=== PATIENT | female | born 1995 | race Caucasian/White ===

== ENCOUNTER 2019-10-24 17:41 | Inpatient (IN) | payer OTHER, SELFPAY ==
[2019-10-24] VITALS (66 sets, daily range): BP systolic 94–130; BP diastolic 51–85; PULSE 59–136; RESP 18–20; TEMP 36.6–37.3; O2SAT 84–100; BMI 20.9
[2019-10-24 18:59] LABS: Mean Corpuscular HGB Conc 33.3 g/dl (32-36); Mean Corpuscular Hemoglobin 27.4 pg (26-34); Mean Corpuscular Volume 82.3 fl (80-100); Mean Platelet Volume 10.6 fl (7.4-10.4); Platelet Count Result 500 k/mm3 (150-375); Red Blood Count 4.01 M/mm3 (4.2-5.4); Red Cell Distribution Width 13.7 % (11.5-14.5); White Blood Count 21.7 K/mm3 (4.5-10.0)
[2019-10-24] MEDS: ONDANSETRON INJ 4 MG/2 ML VIAL IV PUSH (19:01)
[2019-10-24] MEDS: LACTATED RINGERS 1,000 ML 125 ML IV CONT ×2 (19:03→20:03)
[2019-10-24] MEDS: AMPICILLIN 2 GM/NS 100 ML 2 GM/100 ML BAG IVPB (19:04)
[2019-10-24 19:20] LABS: Band Neutrophils Percent 5 % (0-6); Lymphocytes Absolute Manual 2.38 K/mm3 (1.1-4.5); Monocytes Absolute Manual 1.73 K/mm3 (0.1-0.90); Monocytes Percent Manual 8 % (3-9); Neutrophils Absolute Manual 17.57 K/mm3 (1.7-7.2); Neutrophils Percent Manual 76 % (46-73); Platelet Estimate Increased (Adequate); Total Cells Counted 100
--- NOTE | 2019-10-24 20:09 | WPDANESEPPF ---
Anes - Initial Pre Proc Eval Procedure: labor epidural Date/Time: 10/24/19 20:09 Surgeon: Chanel Cowan MD Pre Op Diagnosis: labor pain Pre Op Diagnosis: leaking fluid Patient Data Age: 24 Gender: F Height: 1.6 m Weight: 53.6 kg Last Vital Signs Temp 36.6 C 10/24/19 20:07 Pulse 88 10/24/19 20:07 Resp 20 10/24/19 20:07 BP 104/54 L 10/24/19 20:07 Pulse Ox 100 10/24/19 20:04 Allergies Allergy/AdvReac Type Severity Reaction Status Date / Time No Known Allergies Allergy Verified 08/15/19 13:52 Home Medications Medication Instructions Recorded Confirmed Type PNV cmb#95-ferrous fumarate-FA 1 tablet PO DAILY 07/27/19 10/24/19 History [] sertraline 50 mg PO DAILY 07/27/19 10/24/19 History ondansetron 4 mg PO Q8H PRN #14 tablet 08/15/19 10/24/19 Rx Laboratory Tests 10/24/19 10/24/19 10/24/19 18:52 18:52 18:52 WBC 21.7 K/mm3 H K/mm3 (4.5-10.0) RBC 4.01 M/mm3 L M/mm3 (4.2-5.4) Hgb 11.0 g/dL L g/dL (12.0-15.0) Hct 33.0 % L % (37.0-47.0) MCV 82.3 fl fl (80-100) MCH 27.4 pg pg (26-34) MCHC 33.3 g/dl g/dl (32-36) RDW 13.7 % % (11.5-14.5) Plt Count 500 k/mm3 H D k/mm3 (150-375) MPV 10.6 fl H fl (7.4-10.4) Immature Gran % (Auto) Not Reportable Neut % (Auto) Not Reportable Lymph % (Auto) Not Reportable [place] % (Auto) Not Reportable Eos % (Auto) Not Reportable Baso % (Auto) Not Reportable Lymph # (Auto) Not Reportable [place] # (Auto) Not Reportable Eos # (Auto) Not Reportable Baso # (Auto) Not Reportable Abs Immat Gran (auto) Not Reportable Absolute Neuts (auto) Not Reportable Absolute Nucleated RBC Not Reportable Total Counted 100 Neutrophils % (Manual) 76 % H % (46-73) Band Neutrophils % 5 % % (0-6) Lymphocytes % (Manual) 11.0 % L % (18-44) Monocytes % (Manual) 8 % % (3-9) Nucleated RBC % Not Reportable Abs Neuts (Manual) 17.57 K/mm3 H K/mm3 (1.7-7.2) Abs Lymphs (Manual) 2.38 K/mm3 K/mm3 (1.1-4.5) Abs Monocytes (Manual) 1.73 K/mm3 H K/mm3 (0.1-0.90) Platelet Estimate Increased (Adequate) RPR Pending Blood Type Pending Antibody Screen Pending Patient hx anesthesia problems: none Family hx anesthesia problems: none PMFSH Past Medical History Medical History (Updated 08/16/19 @ 00:00 by Francoise Grigsby) History of depression Surgical History Surgical History (Updated 08/15/19 @ 17:26 by Fernanda Moreno PA-C) History of intestinal surgery Family History Family History (Updated 10/24/19 @ 19:16 by Magy Weldon RN) Sibling POTS (postural orthostatic tachycardia syndrome) Social History Social History (Updated 08/15/19 @ 17:25 by Fernanda Moreno PA-C) Smoking status: Never smoker Substance use: never Gender identity (if verbalized by the patient): Female Anes - Eval Final PreProcedure Day of Procedure 10/24/19 20:09 Patient weight: normal Heart: regular rate and rhythm Lungs: clear to auscultation and normal air movement Airway: Mallampati scale Neurological: alert and oriented ASA classification: II Emergent: no Anesthetic plan: proceed Anesthesia type and monitoring: regional epidural and standard monitoring Informed Consent: The patient's anesthetic plan and its attendant risks and benefits were discussed with the patient/family/POA. Questions were solicited and answers provided to the satisfaction of the patient/family/POA.
--- NOTE | 2019-10-24 21:03 | LDADM ---
This patient, Whitney Ashley, was admitted to Labor/Delivery/Recovery 104 on 10/24/19 at 17:41. Plans for labor, pain management and were discussed with patient. Patient/family oriented to hospital policies and general routines including ID bracelet, bed and alarms, visiting hours, pain management, procedures, bathroom and other care routines, personal items, smoking policy, room service/diet and guest tray routines, security routines, and visiting hours. Patient/Family are encouraged to report perceived risks to care and to ask questions if they do not understand what they are told or what they should do. See OBIX for further documentation.
--- NOTE | 2019-10-24 22:14 | PM.OBPRVD ---
OB - Delivery Note Procedure Delivery date: 10/24/19 Procedure: events: Labor < 37 Weeks Induction method: none Delivery monitor: external FHT and external uterine Route of delivery: Episiotomy description: Midline Delivery repair: vicryl Specimen: Yes Estimated blood loss (mL): 150 Anesthesia type: Epidural Disposition: floor [place] Baby Date of : 10/24/19 Time of : 21:56 Weeks of gestation at delivery: 35 Infant gender: Male Weight (pounds): 5 Weight (ounces): 4 presentation: vertex position: Left Occiput Anterior Placenta delivery description: Spontaneous cord vessel description: 3 Vessels score one minute: 9 score five minutes: 9
[2019-10-24] MEDS: BENZOCAINE 20% AER SPR (*SP) 56 GM CAN 1 SPRAY TOPICAL (23:52)
[2019-10-24] MEDS: WITCH HAZEL 40 PADS 1 PAD TOPICAL (23:52)
[2019-10-25 00:07] VITALS: BP 116/75; PULSE 85
[2019-10-25 00:16] VITALS: BP 123/75; PULSE 87
[2019-10-25] MEDS: ONDANSETRON INJ 4 MG/2 ML VIAL IV PUSH (00:25)
--- NOTE | 2019-10-25 00:45 | PC.NURSE ---
Patient transferred to post room #292 via wheelchair. Support person present. Oriented to unit, room, information board, rooming in, admission packet and security measures. Patient verbalizes understanding.
[2019-10-25 01:00] VITALS: BP 117/71; PULSE 81; RESP 18; TEMP 36.7; O2SAT 100
[2019-10-25 05:06] LABS: Hematocrit 32.3 % (37.0-47.0); Hemoglobin 10.8 g/dL (12.0-15.0)
[2019-10-25] MEDS: MULTIVIT/MIN/PREN/FOL AC/IRON TABLET 1 TAB PO (07:32)
[2019-10-25] MEDS: DOCUSATE SODIUM 100 MG CAPSULE PO (07:32)
[2019-10-25] MEDS: IBUPROFEN 600 MG TABLET PO ×2 (07:33→19:49)
--- NOTE | 2019-10-25 08:03 | PM.OBPNVD ---
OB - PN: Subj Subjective Date/time seen: 10/25/19 08:03 Patient comments: no complaints and pain well controlled baby status: doing well OB - PN: Obj Data Labs CBC & Chem 7: 10/25/19 04:13 Labs: Laboratory Results - last 24 hr 10/24/19 10/24/19 10/25/19 18:52 18:52 04:13 WBC 21.7 H RBC 4.01 L Hgb 11.0 L 10.8 L Hct 33.0 L 32.3 L MCV 82.3 MCH 27.4 MCHC 33.3 RDW 13.7 Plt Count 500 H D MPV 10.6 H Immature Gran % (Auto) Not Reportable Neut % (Auto) Not Reportable Lymph % (Auto) Not Reportable [place] % (Auto) Not Reportable Eos % (Auto) Not Reportable Baso % (Auto) Not Reportable Lymph # (Auto) Not Reportable [place] # (Auto) Not Reportable Eos # (Auto) Not Reportable Baso # (Auto) Not Reportable Abs Immat Gran (auto) Not Reportable Absolute Neuts (auto) Not Reportable Absolute Nucleated RBC Not Reportable Total Counted 100 Neutrophils % (Manual) 76 H Band Neutrophils % 5 Lymphocytes % (Manual) 11.0 L Monocytes % (Manual) 8 Nucleated RBC % Not Reportable Abs Neuts (Manual) 17.57 H Abs Lymphs (Manual) 2.38 Abs Monocytes (Manual) 1.73 H Platelet Estimate Increased Blood Type O Positive Antibody Screen Negative OB - PN A/P Plan day: 1 Plan: routine care Time Spent With Patient Time: Total time spent is greater than 50% in coordination of care (as documented) at patient's floor/unit and/or counseling patient: Time with patient: less than 15 minutes Review of Systems Review of Systems: All systems reviewed & are unremarkable except as noted in HPI and below Exam Narrative: Exam Narrative: Fundus firm and vaginal flow appropriate. Const: General: comfortable
[2019-10-25 08:20] VITALS: BP 97/61; PULSE 77; RESP 16; TEMP 36.7; O2SAT 99
--- NOTE | 2019-10-25 08:28 | WPDANLDPN2 ---
Anes-Prog Note L&D Date/Time: 10/25/19 08:28 Comfortable throughout: labor and delivery Neuraxial method: epidural Epidural/Spinal procedure site: clean & non-tender Neuro status: Neuro function grossly intact. Cardiovascular status: normal Respiratory status: normal Airway patency: baseline Mental status: baseline Post-Op hydration status: normal Vital Signs: Last Vital Signs Temp 36.7 C 10/25/19 01:00 Pulse 81 10/25/19 01:00 Resp 18 10/25/19 01:00 BP 117/71 10/25/19 01:00 Pulse Ox 100 10/25/19 01:00 I/O: Intake & Output 10/24/19 10/25/19 10/25/19 23:59 07:59 15:59 Intake Total 1400 500 Output Total 83 Balance 1400 417 Post-procedural complaints: none Patient feedback: Patient satisfied with anesthetic care.
[2019-10-25 10:55] LABS: Rapid Plasma Reagin Non-Reactive (NonReactive)
--- NOTE | 2019-10-25 11:25 | PC.NURSE ---
Consult with pt., mother states infant has been sleepy and not latching. Mother has bottle fed infant for all feedings. Discussed a with possible issues with sleepiness and willingness/ability to latch and maintain latch. Reviewed stimulation of milk supply, suggested mother initiate pumping every three hours after all feeding attempts. Mother states she wishes to pump and bottle feed at this time. Reviewed mother may small amounts of colostrum to offer as part of feeding and formula will continue to be used for feedings. Mother bottle feed at this time and call out when ready to pump.
--- NOTE | 2019-10-25 16:00 | PC.NURSE ---
Breast pump provided due to ineffective feeding. Instructions given on breast pump care and usage, pumping schedule, nipple care, and collection and storage of breast milk. Encouraged [id number], breast massage and manual expression to stimulate supply. Pumping log provided and reviewed. Assessed patient for correct flange size, placement and draw. Patient verbalizes and demonstrates understanding of instructions.
[2019-10-25 19:35] VITALS: BP 120/73; PULSE 79; RESP 16; TEMP 36.8; O2SAT 100
--- NOTE | 2019-10-26 07:29 | P.DS_ITS ---
OB - DS: Summary OB Procedures : None OB Procedures Intrapartum: Spontaneous Vag Delivery OB Procedures: : None Peripartum Data Delivery Method: Natural Vaginal Laceration description: None Episiotomy description: Midline complications: none Time Spent with Patient Time attestation: Total time spent providing and/or coordinating discharge services: DS: Data Data Completed and Pending Pending studies at discharge: Pending at discharge 10/24/19 22:00 Surgical [PTH] Routine Labs on day of discharge: Labs from last 24 hours 10/24/19 18:52 RPR Non-reactive Discharge Plan Discharge Discharging Clinician: Chanel Cowan Patient Disposition: Home, Self-Care Activity: pelvic rest Diet: regular Patient Instructions: Antibiotic Form Stand Alone Forms: General Discharge Information Follow-up/Referrals: Chanel Cowan MD [Physician] - Discharge Medications: Continued ondansetron 4 mg tablet,disintegrating 4 mg PO Q8H PRN (Reason: nausea and vomiting) Qty: 14 RF: 0 sertraline 50 mg tablet 50 mg PO DAILY RF: 0 PNV cmb#95-ferrous fumarate-FA [] 28 mg iron- 800 mcg Tablet 1 tablet PO DAILY RF: 0 Date of admission: 10/24/19 17:41 Primary Care Provider: 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
--- NOTE | 2019-10-26 07:29 | PM.OBPNVD ---
OB - PN: Subj Subjective Date/time seen: 10/26/19 07:29 Patient comments: no complaints, pain well controlled and tolerating diet OB - PN: Obj Data Labs CBC & Chem 7: 10/25/19 04:13 Labs: Laboratory Results - last 24 hr 10/24/19 18:52 RPR Non-reactive OB - PN A/P Plan day: 2 Plan: routine care and discharge home Time Spent With Patient Time: Total time spent is greater than 50% in coordination of care (as documented) at patient's floor/unit and/or counseling patient: Exam Const: General: comfortable and no acute distress Resp: Effort & Inspection: normal respiratory effort Auscultation: no rales, no rhonchi and no wheezes Cardio: Rate: regular rate Heart sounds: no click, no murmurs and no rubs GI: GI Palp: Yes Soft to palpation and No Tenderness to palpation present (GI) Auscultation: normal bowel sounds Extrem: General: normal to inspection, no pedal edema and no calf tenderness
--- NOTE | 2019-10-26 07:32 | PM.OBDSVD ---
OB - DS: Summary OB Procedures : None OB Procedures Intrapartum: Spontaneous Vag Delivery OB Procedures: : None Peripartum Data Delivery Method: Natural Vaginal Laceration description: None Episiotomy description: Midline complications: none Status at Discharge Functional status at discharge: independent ambulation Time Spent with Patient Time attestation: Total time spent providing and/or coordinating discharge services: DS: Data Data Completed and Pending Pending studies at discharge: Pending at discharge 10/24/19 22:00 Surgical [PTH] Routine Labs on day of discharge: Labs from last 24 hours 10/24/19 18:52 RPR Non-reactive Discharge Plan Discharge Discharging Clinician: Chanel Cowan Patient Disposition: Home, Self-Care Activity: pelvic rest Diet: regular Patient Instructions: Antibiotic Form Stand Alone Forms: General Discharge Information Follow-up/Referrals: Chanel Cowan MD [Physician] - Discharge Medications: Continued ondansetron 4 mg tablet,disintegrating 4 mg PO Q8H PRN (Reason: nausea and vomiting) Qty: 14 RF: 0 sertraline 50 mg tablet 50 mg PO DAILY RF: 0 PNV cmb#95-ferrous fumarate-FA [] 28 mg iron- 800 mcg Tablet 1 tablet PO DAILY RF: 0 Date of admission: 10/24/19 17:41 Primary Care Provider: PHYSICIAN,DELIVERER PHARMACY Admitting Provider: Chanel Cowan Attending physician on admission: Chanel Cowan
[2019-10-26 08:15] VITALS: BP 86/55; PULSE 68; RESP 16; TEMP 36.6; O2SAT 100
[2019-10-26] MEDS: TETANUS,DIPHTHERIA,AC PERTUSSIS ADULT 0.5 ML (ADACEL) IM (09:04)
[2019-10-26] MEDS: IBUPROFEN 600 MG TABLET PO (09:04)
[2019-10-26] MEDS: MULTIVIT/MIN/PREN/FOL AC/IRON TABLET 1 TAB PO (09:04)
[2019-10-28 10:31] VITALS: BP 106/69; PULSE 104; RESP 18; TEMP 36.8
== END 2019-10-26 18:37 | disposition home or self-care (01) | DRG 560 ==
LOC: ANHLDR 18:35 → ANHOB2 10-25 01:06
PROVIDERS: Admitting Provider Obstetrics & Gynecology; Visit Provider Obstetrics & Gynecology
DX: O60.14X0 Preterm labor third trimester with preterm delivery third trimester, not applicable or unspecified (principal); Z37.0 Single live birth; Z3A.35 35 weeks gestation of pregnancy; O36.8330 Maternal care for abnormalities of the fetal heart rate or rhythm, third trimester, not applicable or unspecified
CPT/HCPCS: 36415; 85014; 85018; 85025; 86592; 86850; 86900; 86901; 88307; 90715; A9270; J0290; J2405; J2590; J3010; J7120

== ENCOUNTER 2021-05-12 20:46 | Emergency (ER) | payer OTHER, SELFPAY ==
--- NOTE | ~2021-05-12 | XR_ITS ---
EXAMINATION: XR chest 1V portable 05/12/2021 21:26 INDICATION: Cough and shortness of breath. PROCEDURE: AP portable chest COMPARISON: No prior studies for comparison. FINDINGS: The lungs are clear. The cardiomediastinal silhouette is within normal limits. There are no pleural effusions. There is no pneumothorax suspected. IMPRESSION: 1: NO ACUTE CARDIOPULMONARY DISEASE. Reviewed, dictated and finalized at location A.
[2021-05-12 20:47] VITALS: BP 117/78; PULSE 102; RESP 18; TEMP 36.3; O2SAT 98
--- NOTE | 2021-05-12 22:15 | ED.GENADULT ---
HPI - General Adult General Chief complaint: Upper Respiratory Infection Stated complaint: Cough, congestion for a week Time Seen by Provider: 05/12/21 21:58 History of Present Illness HPI narrative: Patient 26-year-old female presents the emergency department with chief complaint of cough. The patient reports the last week she has had a cough that is been occasionally productive. Patient reports that she does not smoke cigarettes but occasionally smokes marijuana. Patient states that she has not been vaccinated for Covid but has not really been exposed to many people that may have Covid. Patient reports that she had a low-grade temperature of 99 reports the symptoms or not improved by anything reports the cough is more like a tickle. Related Data Home Medications Medication Instructions Recorded Confirmed PNV cmb#95-ferrous fumarate-FA 1 tablet PO DAILY 07/27/19 10/24/19 [] sertraline 50 mg PO DAILY 07/27/19 10/24/19 Allergies Allergy/AdvReac Type Severity Reaction Status Date / Time No Known Allergies Allergy Verified 08/15/19 13:52 Review of Systems Review of Systems: A 10 system review of systems was completed on the patient and is negative except for what is stated in the HPI. Nursing and ancillary documentation was reviewed. [facility] Past Medical History Medical History History of depression Surgical History Surgical History History of intestinal surgery Family History Family History Sibling POTS (postural orthostatic tachycardia syndrome) Social History Social History Smoking status: Never smoker Substance use: never Gender identity (if verbalized by the patient): Female Exam Narrative: GENERAL: Well-appearing, well-nourished, and in no acute distress. HEAD: Normocephalic, atraumatic. EYES: PERRLA and EOMI. ENT: Nares clear, no rhinorrhea or epistaxis. Mucous membranes moist. NECK: Supple. CHEST: Clear to auscultation. No respiratory distress. HEART: Regular rate and rhythm. No murmur heard. Normal peripheral pulses. ABDOMEN: Soft, nontender, nondistended, normal active bowel sounds. EXTREMITIES: Normal range of motion. No edema. SKIN: Warm, dry, no rash. NEURO: No focal deficits. Alert and oriented x3. PSYCH: Normal mood and affect. Course Vital Signs Vital signs: Vital Signs Temperature 36.3 C L 05/12/21 20:47 Pulse Rate 102 H 05/12/21 20:47 Respiratory Rate 18 05/12/21 20:47 Blood Pressure 117/78 05/12/21 20:47 Pulse Oximetry 98 05/12/21 20:47 Temperature 36.3 C L 05/12/21 20:47 Pulse Rate 102 H 05/12/21 20:47 Respiratory Rate 18 05/12/21 20:47 Blood Pressure 117/78 05/12/21 20:47 Pulse Oximetry 98 05/12/21 20:47 Medical Decision Making Vital Signs Vital Signs: Vital Signs Temperature 36.3 C L 05/12/21 20:47 Pulse Rate 102 H 05/12/21 20:47 Respiratory Rate 18 05/12/21 20:47 Blood Pressure 117/78 05/12/21 20:47 Pulse Oximetry 98 05/12/21 20:47 Temperature 36.3 C L 05/12/21 20:47 Pulse Rate 102 H 05/12/21 20:47 Respiratory Rate 18 05/12/21 20:47 Blood Pressure 117/78 05/12/21 20:47 Pulse Oximetry 98 05/12/21 20:47 Lab Data Labs: Lab Results 05/12/21 Range/Units 22:46 SARS-CoV-2 RNA (RT-PCR) Pending Discharge Plan Discharge Clinical Impression: Upper respiratory infection, viral, Acute bronchitis, viral Patient Disposition: Home, Self-Care Condition: Stable Instructions: Antibiotic Form, Upper Respiratory Infection (ED), Acute Bronchitis (ED) Prescriptions: New albuterol sulfate 90 mcg/actuation HFA aerosol inhaler 2 puff inhalation QID PRN (Reason: shortness of breath or wheezing) Qty: 8.5 RF: 0 rosa
[2021-05-12 23:11] VITALS: BP 119/71; PULSE 88; RESP 18; O2SAT 97
[2021-05-12 23:19] LABS: EDCOVIDSCREEN Negative (Negative)
== END 2021-05-12 23:45 | disposition home or self-care (01) ==
LOC: ANHED 22:44
PROVIDERS: Emergency Provider Emergency Medicine
DX: J20.8 Acute bronchitis due to other specified organisms (principal); J06.9 Acute upper respiratory infection, unspecified; Z20.822 Contact with and (suspected) exposure to COVID-19; F32.9 Major depressive disorder, single episode, unspecified
CPT/HCPCS: 36415; 71045; 87426; 99283; C9803